=== PATIENT | male | born 1985 | race Caucasian/White ===

== ENCOUNTER 2022-07-13 09:10 | Emergency (ER) | payer MEDICAID ==
[~2022-07-13] VITALS: Ht 162.8 cm; Wt 60.3 kg
[2022-07-13 09:34] VITALS: BP 124/92
[2022-07-13 10:04] LABS: BASOPHILS # (AUTO) 0.1 K/uL (0.00-0.22); BASOPHILS % (AUTO) 1.1 % (0.0-2.0); EOSINOPHILS # (AUTO) 0.1 K/uL (0-0.4); EOSINOPHILS % (AUTO) 1.7 % (0.0-4.0); HEMOGLOBIN 15.8 g/dL (12.0-18.0); LYMPHOCYTES # (AUTO) 1.5 K/uL (2.0-11.5); LYMPHOCYTES % (AUTO) 20.8 % (20.5-51.1); MEAN CORPUSCULAR HEMOGLOBIN 31 pg (27-31); MEAN CORPUSCULAR HGB CONC 34 g/dL (33-37); MEAN CORPUSCULAR VOLUME 90.7 fL (80-94); MONOCYTES # (AUTO) 0.9 K/uL (0.8-1.0); MONOCYTES % (AUTO) 11.9 % (1.7-9.3); NEUTROPHILS # (AUTO) 4.8 K/uL (1.8-7.7); NEUTROPHILS % (AUTO) 64.5 % (42.2-75.2); PLATELET COUNT (AUTO) 324 K/uL (140-450); RED BLOOD CELL COUNT(AUTO) 5.07 MIL/uL (4.20-6.10); RED CELL DISTRIBUTION WIDTH 12.5 % (11.6-13.7); WHITE BLOOD COUNT (AUTO) 7.4 K/uL (4.8-10.8)
[2022-07-13 11:11] LABS: APPEARANCE,URINE CLEAR (CLEAR); BILIRUBIN,URINE NEGATIVE (NEGATIVE); BLOOD, URINE 2+ (NEGATIVE); COLOR,URINE YELLOW (YELLOW); LEUKOCYTE ESTERASE ,URINE NEGATIVE (NEGATIVE); NITRITE, URINE NEGATIVE (NEGATIVE); UGLUCOSE NEGATIVE (NEGATIVE)
[2022-07-13 12:13] LABS: ALBUMIN 3.4 g/dL (3.4-5.0); ANION GAP 12.8 (8-16); CARBON DIOXIDE 30.4 mmol/L (21-32); CREATININE 1.9 mg/dL (0.6-1.3); POTASSIUM 3.2 mmol/L (3.5-5.1); TOTAL BILIRUBIN 0.4 mg/dL (0.0-1.0)
[2022-07-13 12:30] LABS: RBC,URINE 0-5 /HPF (0-5)
[2022-07-13 12:31] LABS: WBC,URINE 0-5 /HPF (0-5)
[2022-07-13] MEDS ORDERED: DICYCLOMINE HCL LIQUID 20 MG, ALUMINUM HYD/MAG/SIMETHICONE 30 ML, LIDOCAINE VISCOUS 2% ... PO ONE ×3 (12:45)
[2022-07-13] MEDS ORDERED: ONDANSETRON 4 MG ODT PO ONE (12:45)
[2022-07-13] MEDS ORDERED: ALUMINUM HYD/MAG/SIMETHICONE 30 ML UDC ONE (12:48)
[2022-07-13] MEDS ORDERED: DICYCLOMINE HCL LIQUID 10 MG/5 ML UDC ONE (12:48)
--- NOTE | 2022-07-13 12:50 | NUR ---
37 y/o male, c/o epigastric pain and burning, n/v for 2 weeks. pt states he was seeing a GI specialist 5 years ago for symptoms. pt states s/s worsened 2 weeks ago. states pain comes and goes with no relief from peptobismol. pmh: denies nka med: peptobismol
[2022-07-13] MEDS ORDERED: ONDA-188 PO (13:33)
[2022-07-13] MEDS ORDERED: OMEP20EC11 PO (13:33)
[2022-07-13] MEDS ORDERED: MAG355OR2 PO (13:33)
[2022-07-13 14:36] VITALS: BP 124/92
--- NOTE | 2022-07-13 14:37 | NUR ---
Patient discharged with v/s stable. Written and verbal after care instructions given and explained. Patient alert, oriented and verbalized understanding of instructions. Ambulatory with steady gait. All questions addressed prior to discharge. ID band removed. Patient advised to follow up with PMD. Rx of maalox, omeprazole, zofran (sent) given. Patient educated on indication of medication including possible reaction and side effects. Opportunity to ask questions provided and answered. discharged by kyle quispe
== END 2022-07-13 14:37 | disposition home or self-care (01) ==
LOC: MED 09:10 → EDBD 09:10 → MED 14:37
DX: K29.70 Gastritis, unspecified, without bleeding (principal); N18.9 Chronic kidney disease, unspecified
CPT/HCPCS: 36415; 80053; 81001; 83690; 85025; 99283; Q0162

== ENCOUNTER 2022-08-21 23:05 | Emergency (ER) | payer MEDICAID ==
[~2022-08-21] VITALS: Ht 162.6 cm; Wt 61.2 kg
[~2022-08-21 23:05] MED LIST: MAG355OR2 PO; OMEP20EC11 PO; ONDA-188 PO
[2022-08-21 23:17] VITALS: BP 130/89
--- NOTE | 2022-08-21 23:20 | NUR ---
TO LOBBY A/W BED AMBULATORY
[2022-08-22] MEDS ORDERED: predniSONE 20 MG TAB PO ONE (00:30)
[2022-08-22] MEDS ORDERED: HYDROcodone/APAP 5/325 MG 1 TAB TAB PO ONE (00:30)
[2022-08-22] MEDS ORDERED: ACET-5629 PO (00:31)
[2022-08-22] MEDS ORDERED: PRED20TA5 PO (00:31)
--- NOTE | 2022-08-22 01:00 | NUR ---
PT SEEN AND ASSESSED BY TESHA
--- NOTE | 2022-08-22 01:02 | NUR ---
Written and verbal after care instructions given and explained. Patient alert, oriented and verbalized understanding of instructions. Ambulatory with steady gait. All questions addressed prior to discharge. ID band removed. Patient advised to follow up with PMD. Rx of PERCOCET 5-325MG AND DELTASONE given. Patient educated on indication of medication including possible reaction and side effects. Opportunity to ask questions provided and answered.
== END 2022-08-22 01:02 | disposition home or self-care (01) ==
LOC: MED 23:05
DX: M10.9 Gout, unspecified (principal); N18.9 Chronic kidney disease, unspecified; K29.70 Gastritis, unspecified, without bleeding
CPT/HCPCS: 73630; 99283; J7512

== ENCOUNTER 2022-08-25 19:37 | Emergency (ER) | payer MEDICAID ==
[~2022-08-25] VITALS: Ht 162.6 cm; Wt 60.6 kg
[~2022-08-25 19:37] MED LIST changes: +ACET-5629 PO; +PRED20TA5 PO
[2022-08-25 20:03] VITALS: BP 130/54
[2022-08-25] MEDS ORDERED: PROM118S5 PO (20:22)
[2022-08-25] MEDS ORDERED: IBUP-2213 PO (20:22)
--- NOTE | 2022-08-25 20:30 | NUR ---
SWABS COLLECTED AND TAKEN TO LAB.
[2022-08-25 20:37] VITALS: BP 130/54
--- NOTE | 2022-08-25 20:37 | NUR ---
Patient discharged with v/s stable. Written and verbal after care instructions given and explained. Patient alert, oriented and verbalized understanding of instructions. Ambulatory with steady gait. All questions addressed prior to discharge. ID band removed. Patient advised to follow up with PMD. Rx of IBUPROFEN AND PROMETHAZINE DM given. Patient educated on indication of medication including possible reaction and side effects. Opportunity to ask questions provided and answered.
== END 2022-08-25 20:37 | disposition home or self-care (01) ==
LOC: MED 19:37
DX: J06.9 Acute upper respiratory infection, unspecified (principal); Z20.822 Contact with and (suspected) exposure to COVID-19; Z79.899 Other long term (current) drug therapy; Z79.1 Long term (current) use of non-steroidal anti-inflammatories (NSAID)
CPT/HCPCS: 99283

== ENCOUNTER 2023-05-18 12:29 | Emergency (ER) | payer MEDICAID, OTHER ==
[~2023-05-18] VITALS: Ht 167.6 cm; Wt 61.2 kg
[~2023-05-18 12:29] MED LIST changes: +IBUP-2213 PO; +PROM118S5 PO
[2023-05-18 12:40] VITALS: BP 124/77; PULSE 79; RESP 18; TEMP 98.3; O2SAT 99
[2023-05-18] MEDS ORDERED: LIDOCAINE MPF 1% 10 MG/ML VIAL INJ ONE ×2 (12:50→17:55)
[2023-05-18] MEDS ORDERED: LIDOCAINE MPF 1% 5 ML ONE (14:15)
[2023-05-18] MEDS ORDERED: IBUP-2213 PO (14:44)
[2023-05-18] MEDS ORDERED: CEPH-588 PO (14:44)
[2023-05-18] MEDS ORDERED: BACI-418 TP (14:44)
[2023-05-18 15:00] VITALS: BP 124/77; PULSE 79; RESP 18; TEMP 98.3; O2SAT 99
== END 2023-05-18 15:00 | disposition home or self-care (01) ==
LOC: MED 12:29
DX: S91.111A Laceration without foreign body of right great toe without damage to nail, initial encounter (principal); S60.211A Contusion of right wrist, initial encounter; S80.812A Abrasion, left lower leg, initial encounter; R03.0 Elevated blood-pressure reading, without diagnosis of hypertension; Z79.899 Other long term (current) drug therapy; Z79.1 Long term (current) use of non-steroidal anti-inflammatories (NSAID); Z79.2 Long term (current) use of antibiotics; W20.8XXA Other cause of strike by thrown, projected or falling object, initial encounter; Y93.89 Activity, other specified; Y92.89 Other specified places as the place of occurrence of the external cause; Y99.8 Other external cause status
CPT/HCPCS: 12002; 73110; 73590; 73660; 90471; 90715; 99284; J2001

== ENCOUNTER 2023-05-25 16:23 | Emergency (ER) | payer OTHER ==
[~2023-05-25] VITALS: Ht 163.6 cm; Wt 60.8 kg
[~2023-05-25 16:23] MED LIST changes: +BACI-418 TP; +CEPH-588 PO
[2023-05-25 16:51] VITALS: BP 134/86; PULSE 81; RESP 18; TEMP 97.8; O2SAT 100
[2023-05-25] MEDS ORDERED: BACITRACIN OINT 500 UNITS/GM PKT TP ONE (17:20)
== END 2023-05-25 18:00 | disposition home or self-care (01) ==
LOC: MED 16:23
DX: S91.111D Laceration without foreign body of right great toe without damage to nail, subsequent encounter (principal); Z48.02 Encounter for removal of sutures; X58.XXXD Exposure to other specified factors, subsequent encounter
CPT/HCPCS: 99281

== ENCOUNTER 2023-08-14 09:37 | Emergency (ER) | payer OTHER ==
[~2023-08-14] VITALS: Ht 162.6 cm; Wt 61.2 kg
[2023-08-14 09:46] VITALS: BP 115/80; PULSE 98; RESP 18; TEMP 99.7; O2SAT 100
[2023-08-14] MEDS ORDERED: KETOROLAC 30 MG/ML VIAL IM ONE (10:10)
[2023-08-14] MEDS ORDERED: NAPR-1704 PO (10:18)
[2023-08-14] MEDS ORDERED: PROM473S5 PO (10:19)
[2023-08-14 11:07] LABS: FLU B ANTIGEN NEGATIVE (NEGATIVE)
[2023-08-14 11:08] LABS: FLU A ANTIGEN POSITIVE (NEGATIVE)
[2023-08-14] MEDS ORDERED: TAM75 PO (11:24)
== END 2023-08-14 10:56 | disposition home or self-care (01) ==
LOC: MED 09:37
DX: B34.9 Viral infection, unspecified (principal); Z20.822 Contact with and (suspected) exposure to COVID-19; Z79.899 Other long term (current) drug therapy
CPT/HCPCS: 87426; 87804; 96372; 99283; J1885